=== PATIENT | male | born 1945 | race Caucasian/White ===

== ENCOUNTER → 2016-12-16 | Outpatient (CLI) | payer MEDICARE, OTHER ==
[~2016-12-16] MED LIST: ALDACTONE25 MG PO; AMARYL4 MG PO; APRESOLINE50 MG PO; ASPIRIN325 MG PO; BYSTOLIC10 MG PO; CARDURA2 MG PO; CPAP; GLUCOPHAGE1000 MG PO; HUMALOG100 UNIT/3 SUB-Q; K-TAB ER20 MEQ PO; LANTUS SOL100 UNIT/1 SUB-Q; LASIX80 MG PO; LEVEMIR100 UNIT/1 SUB-Q; NEURONTIN300 MG PO; NORCO 5-325 TA1 EACH PO; OMEPRAZOLE40 MG PO; OXYGEN M-15 INH; PLAVIX75 MG PO; PROAIR HFA8.5 GM INH; REGLAN10 MG PO; TYLENOL325 MG PO; ZAROXOLYN2.5 MG PO
== END | disposition disaster alternative care site (69) ==
LOC: GPOC 12-15 16:00 → GRAD 06:17 → GPOC 09:00 → GRAD 12-19 13:00
DX: I70.203 Unspecified atherosclerosis of native arteries of extremities, bilateral legs (principal); I70.202 Unspecified atherosclerosis of native arteries of extremities, left leg; I70.291 Other atherosclerosis of native arteries of extremities, right leg; I70.0 Atherosclerosis of aorta
CPT/HCPCS: Q9967

== ENCOUNTER 2016-12-27 08:37 | Inpatient (IN) | payer MEDICARE, OTHER ==
[~2016-12-27] VITALS: Ht 170.2 cm; Wt 94.4 kg
--- NOTE | ~2016-12-27 | HP ---
PATIENT'S NAME: GOODNEWS BAY MARTIN [facility] AGE: 71 Y [address] ROOM: [id number] [place], [place] [address] LOCATION: GPCU ADMIT DATE: 12/27/2016 History & Physical DISCHARGE DATE: FAMILY PHYSICIAN: Ramone Valenzuela MD ATTENDING PHYSICIAN: John Tapia DATE OF SERVICE: CHIEF COMPLAINT: Acute kidney injury in the setting of chronic kidney disease, stage 3, and hyperglycemia. HISTORY OF PRESENTING ILLNESS: This 71-year-old white male with a previous history of coronary artery disease, hypertension, and chronic kidney disease was brought to [facility] today for planned angiography under the direction of Dr. Davis. Briefly, he had been evaluated for rest claudication. He underwent JAZMINE testing, which was abnormal, and subsequently had CT angiography on 12/16/2016. 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 Dr. Davis recommended to undergo therapeutic angiography, which was scheduled for today. On his arrival here, his creatinine was found to be elevated at 2.1, and his blood glucose was 460. The procedure was canceled, and it was requested that I admit him to the floor for definitive evaluation and management. Presently, he reports feeling "good." He denies headaches, dizziness, or lightheadedness. He has not had any significant fevers. He does admit to feeling a little short of breath, particularly with exertion, and blames this on his congestive heart failure. He did have an admission for that within the past few months apparently. He denies chest pains. Denies palpitations or racing heartbeat. He has not had any abdominal pain. His appetite has been good, and he ate last at 11:30 p.m. last night. He took his Lantus in the evening as he usually does. He did not use any insulin this morning, and he admits that he does not check his blood sugars regularly. He follows with Dr. Valenzuela in [place] who manages his medical problems. He has been stooling and voiding normally. Denies numbness or tingling in his extremities, but does have some tenderness in his toes. He has some small ulcerations which he blames on trimming his toenails too short. PAST MEDICAL HISTORY: ALLERGIES: [facility] 71 [facility] [address] ROOM: [address] [place], [place] [address] [facility] AD[facility] DATE: 12/27/2016 History & Physical DISCHARGE DATE: FAMILY PHYSICIAN: Ramone Valenzuela MD ATTENDING PHYSICIAN: John Tapia PENICILLIN AND CEPHALEXIN. ILLNESSES: 1. Chronic systolic congestive heart failure. 2. Essential hypertension. 3. Chronic kidney disease, stage 3. 4. Peripheral arterial disease. 5. Diabetes mellitus, type 2. 6. Obstructive sleep apnea. 7. 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 8. Diabetic gastroparesis. 9. Diabetic peripheral neuropathy. 10. Nocturnal hypoxia. CURRENT MEDICATIONS: 1. Aspirin 325 mg p.o. daily. 2. Bystolic 10 mg p.o. daily. 3. Doxazosin 2 mg p.o. b.i.d. 4. Lasix 80 mg p.o. daily. 5. Gabapentin 300 mg 4 capsules p.o. t.i.d. 6. Lantus 75 units subcu q.h.s. 7. Metformin 1000 mg p.o. b.i.d. 8. Metolazone 5 mg p.o. every Monday, Monday, and Monday. 9. Omeprazole 40 mg p.o. daily. 10. Plavix 75 mg p.o. daily. 11. Potassium 20 mEq p.o. daily. 12. ProAir HFA 2 puffs p.o. q.i.d. p.r.n. 13. Reglan 10 mg p.o. t.i.d. p.r.n. 14. Tylenol 325 mg 3 tablets p.o. q.6 hours p.r.n. FAMILY HISTORY: Significant for Alzheimer disease in his father. Mother had diabetes and coronary artery disease. SOCIAL HISTORY: He is and lives in [place]. He is self-employed. He has a 40-pack- year history of smoking, but has been quit for 29 years. No significant history of alcohol use. REVIEW OF SYSTEMS: As per HPI. All other organ systems reviewed and are negative. PHYSICAL EXAMINATION: VITAL SIGNS: Temperature 97.1, pulse 73, respirations 16, blood pressure 144/66, and O2 saturation 93% on room air. PATIENT'S NAME: MARTIN ASTUDILLO [facility] AGE: 71 Y [address] ROOM: [id number] [place], [place] [address] LOCATION: GPCU ADMIT DATE: 12/27/2016 History & Physical DISCHARGE DATE: FAMILY PHYSICIAN: Ramone Valenzuela MD ATTENDING PHYSICIAN: John Tapia GENERAL: He is a little anxious, but cooperative; lying in bed; in no acute distress. SKIN: Supple, pink, warm, and dry. No obvious rashes. HEENT: Otherwise, normocephalic. Sclerae are nonicteric. Pupils equal, round, and reactive to light and accommodation. Extraocular movements appear intact. Nasal turbinates normal in appearance. Oropharynx clear. Mucous membranes are pink and moist. Dentition appears intact. NECK: Supple. Plethoric. No masses or cervical adenopathy. No thyromegaly. No JVD. CHEST WALL: Symmetrical. HEART: Regular with occasional extrasystoles. There is a grade 1 to 2 out of 6 systolic ejection murmur. LUNGS: Diminished at the bases, with some basilar crackles bilaterally which seem to clear with deep inspiration. ABDOMEN: Firm, protuberant, and obese. No masses or hepatosplenomegaly. GENITOURINARY: Not done. RECTAL: Not done. EXTREMITIES: Display trace pitting edema. No cyanosis. NEUROLOGICAL: Sensation is subjectively diminished over the lower extremities. Strength is 5/5 bilaterally in the upper and lower extremities. DTRs are 0 to 1+ and symmetrical. Gait is not observed. LABORATORY AND X-RAY DATA: Chemistry this morning revealed BUN and creatinine of 59 and 2.1, sodium and potassium of 135 and 4.6, chloride and CO2 were 96 and 31, and calcium 9.1. AST and ALT were 17 and 27 respectively. Bilirubin 0.3. Glucose was elevated at 460. An Accu-Chek was abnormal at 374 at 11:54 a.m. ASSESSMENT AND PLAN: 1. Acute kidney injury in the setting of chronic kidney disease, stage 3. His risk factors include longstanding and poorly controlled diabetes mellitus as well as hypertension. Additionally, he had a significant contrast load with CT angiography on 12/16/2016. He currently appears volume compensated and apparently making adequate amounts of urine. In view of his history of systolic congestive heart failure, we will be careful not to overload him, but plan to continue with careful IV fluid hydration therapy today. We will continue his home diuretic regimen, however. We will get renal ultrasound and follow up on that when the results are known, and depending on his clinical progress, consider getting formal nephrology consultation. He has seen Dr. Gomes in the past, but he does not recall that any followup or interventions were recommended. 2. Diabetes mellitus, type 2, uncontrolled, with hyperglycemia. Suspect a combination of medication and dietary noncompliance as contributing factors. We will manage with Accu-Cheks and sliding scale insulin in PATIENT'S NAME: MARTIN ASTUDILLO [facility] AGE: 71 Y [address] ROOM: [place] [address] LOCATION: GPCU ADMIT DATE: 12/27/2016 History & Physical DISCHARGE DATE: FAMILY PHYSICIAN: Ramone Valenzuela MD ATTENDING PHYSICIAN: John Tapia addition to his long-acting insulin. We will have to hold his metformin and glipizide in light of the acute kidney injury as above. We will follow the trend and make adjustments as necessary. 3. Chronic systolic congestive heart failure. He is mildly dyspneic as described above. Currently, he appears to be compensated, but there is some concern that he would easily become fluid overloaded. We will get a portable chest x-ray and proBNP and follow up on those when the results are known. We will also try to obtain some additional old records to ascertain his cardiac history. 4. Essential hypertension, uncontrolled. Plan to continue the home medication regimen and watch his fluid volume balance closely. We will make adjustments if necessary. 5. Peripheral arterial disease. Plan to continue with aspirin and Plavix therapy. Consider statin therapy at some point. 6. Obstructive sleep apnea. We will continue to use CPAP at bedtime. 7. Diabetic peripheral neuropathy. Plan to continue with gabapentin for now. 8. Diabetic gastroparesis. Continue the Reglan on a p.r.n. basis. 9. Deep venous thrombosis prophylaxis. We will utilize subcu heparin while he is inpatient. MD ISRAEL CASTANEDA/diana /[id number] D: [id number] T: [id number] HISTORY & PHYSICAL
--- NOTE | ~2016-12-27 | DS ---
PATIENT'S NAME: MARTIN ASTUDILLO [facility] AGE: 71 Y [address] ROOM: [address] [place], [place] [address] LOCATION: GPCU ADMIT DATE: 12/28/2016 Discharge Summary DISCHARGE DATE: 12/31/2016 FAMILY PHYSICIAN: Ramone Valenzuela MD ATTENDING PHYSICIAN: John Tapia FINAL DIAGNOSES: 1. Peripheral vascular disease with critical limb ischemia. 2. Accelerated hypertension. 3. Poorly controlled diabetes mellitus. 4. Acute kidney injury on stage 3 chronic kidney disease. 5. Diabetic peripheral neuropathy. 6. Chronic systolic congestive heart failure. 7. Obstructive sleep apnea with CPAP utilization. 8. Chronic hypoxic hypercapnic respiratory failure. PROCEDURE: Had an arteriogram with bilateral lower extremity runoff with a superficial femoral artery balloon angioplasty, right iliac angioplasty with stent. REASON FOR ADMISSION: The patient had presented for an outpatient procedure, but the procedure had to be postponed due to acute renal failure, poorly controlled diabetes, and accelerated hypertension. LABORATORY DATA: On admission, sodium 135, on discharge 140; potassium on admission 4.6, on discharge 3.8; BUN on admission 59, on discharge 45; creatinine on admission 2.1; on discharge 1.7. ProBNP on admission was 487. TSH 1.22. Liver enzymes were normal. On admission, white blood cell count 4.8, hemoglobin 13, hematocrit 42.7, MCV 79.8, and platelet count 141. At discharge, hemoglobin 12.8 and platelet count 145. Chest x-ray on admission did not show any acute changes. HOSPITAL COURSE: The patient was admitted after presenting for an outpatient procedure for his limb ischemia on the right leg. In the preop, he was noted to be hyperglycemic and his creatinine was noted to be 2.1. At that time, the decision was made to did admit the patient. The hospital service was consulted to see. At that time, he was started on sliding scale insulin. His blood sugars were checked closely. Renal ultrasound was done to evaluate the cause for his acute renal failure. We did require the initiation of IV medications to help control his blood pressure. Dr. Davis did see the patient. It was felt that because of the blood pressure being so resistant in the new onset kidney failure, that he needed to be placed as an inpatient. He was started on oral hydralazine, and in terms of his renal function, he was given some IV fluids. His renal toxic medications were held. Dr. Gomes was asked to see the patient. He was started on insulin at 2 units per 15 g of PATIENT'S NAME: MARTIN ASTUDILLO [facility] AGE: 71 Y [address] ROOM: [address] [place], [place] [address] LOCATION: GPCU ADMIT DATE: 12/28/2016 Discharge Summary DISCHARGE DATE: 12/31/2016 FAMILY PHYSICIAN: Ramone Valenzuela MD ATTENDING PHYSICIAN: John Tapia consumed, and we will increase his Levemir to 78. We continued to work on adjusting his medications as his blood sugars remained high and he remained hypertensive. Dr. Gomes did feel that this was prerenal as the etiology for his acute kidney insufficiency. His kidney function did improve and did get bound to his baseline. We were able to obtain the laboratory studies from Dr. Valenzuela's office, what showed his baseline. We did adjust his hydralazine. He was able to undergo the procedure with Dr. Davis on December 30, 2016, please see Dr. Davis's op note for full details. The patient was felt to be stable for discharge and discharged to home on December 31, 2016. He will follow up with Dr. Valenzuela in 3-[address] Gomes, in 2-3 weeks. He is to call Ryan to schedule the next procedure on the left leg. MEDICATIONS: 1. Potassium 20 mEq daily. 2. Acetaminophen 975 mg every 6 hours as needed. 3. Aspirin 325 mg daily. 4. Plavix 75 mg daily. 5. Cardura 2 mg twice daily. 6. Lasix 80 mg daily. 7. Gabapentin 300 mg twice daily. 8. Humalog insulin 12 units subcu 3 times daily with meals. 9. Metformin which he can start on January 01, 2017, 1000 mg twice daily. 10. Metoclopramide 10 mg 3 times daily. 11. Bystolic 10 mg daily. 12. Omeprazole 40 mg daily, CPAP machine. 13. Albuterol inhaled 2 puffs every 4 hours as needed. 14. Hydralazine 100 mg 3 times daily. 15. Levemir 80 mg subcu at bedtime. 16. Spironolactone 25 mg twice daily. 17. [place]wood 1-2 every 6 hours as needed. MARY RICO MD LAW/modl /[id number] CC: MD Ramone Torres MD [facility]: [facility] AGE: 71 Y [address] ROOM: [place] [address] [facility] AD[facility] DATE: 12/28/2016 Discharge Summary DISCHARGE DATE: 12/31/2016 FAMILY PHYSICIAN: Ramone Valenzuela MD ATTENDING PHYSICIAN: John Tapia MD d: 01/02/17 0107 t: 01/03/17 1451, DISCHARGE SUMMARY
--- NOTE | ~2016-12-27 | OR ---
PATIENT'S NAME: MARTIN ASTUDILLO [facility] AGE: 71 Y [address] ROOM: [address] [place] [address] LOCATION: GPCU ADMIT DATE: 12/28/2016 OR/Procedure Report DISCHARGE DATE: FAMILY PHYSICIAN: Ramone Valenzuela MD ATTENDING PHYSICIAN: John Tapia SURGEON: Merrick Davis MD BLAST FURNACE CHECKER: DATE OF PROCEDURE: 12/30/2016 PREOPERATIVE DIAGNOSIS: Critical ischemia on the right lower extremity. POSTOPERATIVE DIAGNOSIS: Critical ischemia on the right lower extremity. PROCEDURE: Aortogram, bilateral lower extremity runoffs, SFA balloon angioplasty, and a right external iliac balloon angioplasty and stenting with an 8 x 40 stent. DESCRIPTION OF PROCEDURE: The patient was brought to the chemistry laboratory technician, placed supine on the chemistry laboratory technician table, prepped and draped in a sterile manner. Preoperative time-out was performed. The patient received preoperative antibiotics. We gained access via the left groin using ultrasound guidance using a micropuncture wire followed by micropuncture sheath. We then exchanged for a 5-Bahraini sheath. We went up in the aorta and performed an aortogram which showed a patent distal aorta, patent common external and internal iliacs with a high-grade stenosis of the right external iliac. We went up over the bifurcation. We performed a series of angiograms of the right lower extremity which showed a completely occluded right SFA with recanalization of the above knee pop. We were able to pass a 035 Magic Torque wire across these SFA lesion down into the popliteal. We then exchanged using Seldinger technique for a 6-Bahraini Destination sheath. We then gave 5000 units of heparin. We balloon angioplastied the entire SFA, opened first by using a single 5 x 120 balloon, and then we angioplastied it subsequently with three 6 x 120 drug-coated balloons. We then brought our sheath back and balloon angioplastied the external iliac with a 7 x 80 balloon with good relief of the stenosis, but there was still a very high-grade heavily calcified portions, so we treated that with an 8 x 40 balloon expandable stent with good relief of the stenosis. We brought our sheath back up and over and performed an angiogram of the left lower extremity which basically showed multiple high-grade stenosis of the left SFA. The patient will need this repaired at a later date. Sheath was removed. Pressure was held. Protamine was used to reverse the heparin. The patient tolerated the procedure well and was transferred to the recovery room and back to the floor. PATIENT'S NAME: MARTIN ASTUDILLO [facility] AGE: 71 Y [address] ROOM: [id number] [place] [id number] [facility] AD[facility] DATE: 12/28/2016 OR/Procedure Report DISCHARGE DATE: FAMILY PHYSICIAN: Ramone Valenzuela MD ATTENDING PHYSICIAN: John Tapia MD JANET BLAKE/modl /[id number] d: 12/30/16 2254 t: 01/02/17 1511, OPERATIVE SUMMARY
--- NOTE | ~2016-12-27 | ENPV ---
Vascular Lower Arterial Plethysmography Procedure Demographics Patient Name MARTIN ASTUDILLO Date of Study 12/31/2016 Patient Number [id number] Gender Male Date of 1945 Age 71 Visit Number [id number] Height 66.93 Accession Number [id number] Weight 209 Referring Bianca Brown MD Interpreting Ryan Sin MD Physician Willie Arana MD Physician Coleen Jamison APRN Physician Ordering Physician Coleen Jamison Risk Control Consultant MISAEL Cash Manager Mara Caldera RVT Conclusions Summary Previous JAZMINE 11/29/2016 Right JAZMINE .24 Current Exam: Ankle brachial index on the right is .63 moderate arterial disease at rest. Procedure Type of Study: Extremities Arteries:Lower Arterial Plethysmography, Ankle/Brachial Indicies, Ankle/Brachial Indicies Unilateral. Indications for Study:Claudication. Appropriate Use Criteria:9 Allergies - Penicillin. - Other:(Cephalexin). Patient Status:Routine. Technical Quality:Adequate visualization. Velocities are measured in cm/s ; Diameters are measured in cm Pressures + +----+ +---------+--------+ + + ! ! !Right ! !Left ! ! ! + +----+ +---------+--------+ + + !Location ! !Pressure !Ratio ! !Pressure !Ratio ! + +----+ +---------+--------+ + + !Ankle PT ! !95 !0.6 ! ! ! ! + +----+ +---------+--------+ + + !DP ! !100 !0.63 ! ! ! ! + +----+ +---------+--------+ + + - Brachial Pressure:Right: 159.Left:133. - JAZMINE:Right: 0.63. Signature dtt: MANDIE LICONA dtd: 12/31/16 1157 Physician Self Edit
--- NOTE | ~2016-12-27 | CON ---
PATIENT'S NAME: COLON MARTIN Kevin [facility] AGE: 71 Y [address] ROOM: [place] [address] LOCATION: GPCU ADMIT DATE: 12/28/2016 Consultation DISCHARGE DATE: FAMILY PHYSICIAN: Ramone Valenzuela MD ATTENDING PHYSICIAN: John Tapia DATE OF CONSULTATION: 12/28/2016 REFERRING PHYSICIAN: Jodee Ang MD REASON FOR CONSULTATION: Elevated BUN and creatinine. HISTORY OF PRESENT ILLNESS: The patient is a 71-year-old white male with a history of and uncontrolled hypertension. I saw him for a Nephrology consultation because of his uncontrolled hypertension in the past. His outpatient medication did include lisinopril. Apparently, he was in heart failure and Lasix was initiated in [place], [place]. He reports that he has been taking ibuprofen on a regular basis. The patient was diagnosed with peripheral vascular disease. He came in for an arteriogram procedure and he was noted to have a creatinine of 2.1. Today, it is down to 1.7. Dr. Ang was concerned and asked me to see this gentleman for a Nephrology consultation. Renal ultrasound showed right kidney of 13.3 cm, left kidney of 12.8 cm. There is no hydronephrosis. REVIEW OF SYSTEMS: GENERAL: He denies any fever, chills, or rigors. HEENT: Denies any sore throat or sinus congestion. CARDIOVASCULAR: Denies any chest pain, dyspnea on exertion. RESPIRATORY: Denies any cough or sputum production. He did have history of leg swelling. GI: Denies any abdominal pain, nausea, or vomiting. : Denies any dysuria or frequency. MUSCULOSKELETAL: He had pain in the right ankle that is why he was taking ibuprofen. SKIN: Denied any rash or pruritus. Denies any allergies or hay fever. Denies any lymph enlargement or easy bruising. Denies any heat or cold intolerance. ALLERGIES: PENICILLIN AND CEPHALOSPORIN. MEDICATIONS: Outpatient medications include: 1. Aspirin 325 mg a day. PATIENT'S NAME: COLON [facility] AGE: 71 Y [address] ROOM: [place] [address] LOCATION: GPCU ADMIT DATE: 12/28/2016 Consultation DISCHARGE DATE: FAMILY PHYSICIAN: Ramone Valenzuela MD ATTENDING PHYSICIAN: John Tapia 2. Bystolic 10 mg a day. 3. Doxazosin 2 mg twice a day. 4. Lasix 80 mg every day. 5. Gabapentin 300 mg 4 capsules 3 times a day. 6. Lantus 75 units subcutaneously every day. 7. Metformin 1000 mg twice a day. 8. Metolazone 5 mg Monday, Monday, Monday. 9. Omeprazole 40 mg a day. 10. Plavix 75 mg a day. 11. Potassium 20 mEq a day. 12. ProAir HFA 2 puffs 4 times a day p.r.n. 13. Reglan 10 mg 3 times a day. 14. Tylenol p.r.n. PAST MEDICAL HISTORY: Diabetes mellitus, hypertension, chronic congestive heart failure, obesity, peripheral vascular disease, obstructive sleep apnea, chronic hypoxemia, hypercapnic respiratory failure, gastroparesis from diabetes, and diabetic peripheral neuropathy. SOCIAL HISTORY: The patient lives at home in [place]. He is self-employed. He has 40-pack- year history of tobaccoism. He quit smoking 29 years ago. No history of alcohol. He lives with his family. FAMILY HISTORY: No family history of kidney disease or dialysis. PHYSICAL EXAMINATION: GENERAL APPEARANCE: This is a 71-year-old, moderately obese white male, lying in the hospital bed, not in acute distress. VITAL SIGNS: Temperature 97.6, pulse 77, systolic blood pressure 192 and diastolic 84. HEENT: Head: Normocephalic. EENT: Pupils are round and equal. Normal eyelids and conjunctivae. Oral cavity clear. Loss of tooth. Trachea is central. No thyromegaly, no bruit. Unable to evaluate jugular venous pulsation. HEART: Heart sounds are audible. There is no gallop or murmur. There is no pericardial rub. Pulses are regular in rhythm. LUNGS: Bilaterally clear to auscultate with diminished breath sounds as a whole due to obesity. ABDOMEN: Obese, soft, nontender, could not palpate any liver, spleen, or distended abdomen. EXTREMITIES: No clubbing or cyanosis. SKIN: No sign of vasculitis. PATIENT'S NAME: MARTIN ASTUDILLO [facility] AGE: 71 Y [address] ROOM: [id number] [place], [place] [address] LOCATION: GPCU ADMIT DATE: 12/28/2016 Consultation DISCHARGE DATE: FAMILY PHYSICIAN: Ramone Valenzuela MD ATTENDING PHYSICIAN: John Tapia LYMPHATICS: I did not examine the lymphatics. HIGHER PSYCHIATRIC FUNCTION: Normal speech and memory. LABORATORY DATA: Sodium 139, potassium 4.0, chloride 98, bicarb 32, BUN of 49, creatinine of 1.7. Calcium 9.0, albumin 3.6, phosphorus 4.3. ASSESSMENT: 1. Elevated creatinine. The patient probably has a background of diabetic nephropathy, given he had poorly controlled diabetes with hemoglobin A1c of 9.0. However, I do not know whether he has proteinuria. Acute on chronic kidney disease is most likely related to prerenal etiology. He was taking ibuprofen, he was on lisinopril, and he is also on diuretics. The patient also had accelerated hypertension where his systolic blood pressures went up to 190s and 200s. The patient could have from that. 2. Chronic congestive heart failure. 3. Diabetes mellitus. 4. Diabetic neuropathy. 5. Obesity. 6. Essential hypertension. PLAN: I explained to the patient that his kidney function is less than 50% of what it should have been for his age and sex. I advised him not to use any nonsteroidals or LANGFORD-2 inhibitors ever in his life. His renal ultrasound did not show any hydronephrosis. I noticed that his systolic blood pressure is still 192 and I will add spironolactone. We will check a urinalysis, follow renal function very closely while he is in the hospital. We may need to check for secondary causes of hypertension in this gentleman. His kidneys look symmetric. I would like to thank Dr. Ang for allowing me to participate in this patient's care. M MD JORGE ALVARADOI/isidorol /[id number] CC: Ramone Valenzuela MD d: 12/29/16 0043 t: 12/30/16 1240, CONSULTATION REPORT
[~2016-12-27 08:37] MED LIST changes: -ALDACTONE25 MG PO; -APRESOLINE50 MG PO; -LEVEMIR100 UNIT/1 SUB-Q; -NORCO 5-325 TA1 EACH PO
[2016-12-27 10:06] LABS: ANION GAP 12.6 (10.0-19.0); CALCIUM 9.1 mg/dL (8.5-10.5); CREATININE 2.1 mg/dL (0.6-1.3); POTASSIUM 4.6 mMol/L (3.7-5.1); TOTAL BILIRUBIN 0.3 mg/dL (0.0-1.5); TOTAL PROTEIN 7.5 g/dL (6.0-8.4)
--- NOTE | 2016-12-27 11:04 | NUR ---
PT HERE TO HAVE A PROCEDURE WITH DR. LICONA TODAY. PT'S LAB WORK CAME BACK AND HIS BLOOD SUGAR WAS CRITICAL AT 460, GFR WAS 31 AND CREATININE WAS ELEVATED AT 2.1. ZHAO RODRIGUEZ APRN WAS CONTACTED REGARDING THE LAB RESULTS DR. LICONA WAS DOING A PROCEDURE. MISAEL CHURCHILL GAVE AN ORDER TO GIVE NOVOLOG 12UNITS SUB-Q X1 DOSE NOW AND REPEAT BLOOD SUGAR IN 1 HOUR. MISAEL CHURCHILL THEN CAME AND SAW THE PT AND HIS HERE IN [facility]. MISAEL CHURCHILL ADVISED THE PT AND HIS THAT THEY WOULD LIKE TO ADMIT HIM WITH HIS BLOOD SUGAR BEING SO HIGH WELL HIS CREATININE IS ELEVATED. PT AGREED TO THIS. MISAEL CHURCHILL THEN CONTACTED THE HOSPITALIST AND THEY AGREED TO ADMIT THE PT. FUNERAL ASSISTANT WAS THEN CONTACTED BY MISAEL CHURCHILL AND THE PT WILL BE GOING TO PCU ROOM 6398. REPORT WILL BE CALLED TO NÉSTOR KESSLER ON PCU ONCE SHE IS AVAILABLE. PT HAS NO C/O PAIN. PT'S BP IS ELEVATED AT 180'S/80'S. PT GOT 12 UNITS OF NOVOLOG IN HIS ABD AT 1043.
[2016-12-27 16:06] LABS: BASOPHIL % 0.6 %; EOSINOPHIL # 0.1 K/uL (0.0-0.5); EOSINOPHIL % 2.1 %; HEMATOCRIT 42.7 % (37.0-53.0); IMMATURE GRANULOCYTE % 0.2 %; LYMPHOCYTE # 0.9 K/uL (0.8-4.0); LYMPHOCYTE % 19.6 %; MCH 24.3 pg (27.0-34.0); MCHC 30.4 gm/dL (32.0-36.5); MCV 79.8 fl (83.0-98.0); MONOCYTE # 0.4 K/uL (0.0-1.0); MONOCYTE % 9.1 %; NEUTROPHIL # (ANC) 3.3 K/uL (1.4-9.0); NEUTROPHIL % 68.4 %; NRBC % 0 /100WBC (0-0.00); PLATELET COUNT 141 K/uL (150-450); RBC 5.35 M/uL (3.50-5.50); RDW-CV 16.7 % (11.9-14.6); WBC 4.8 K/uL (4.0-11.0)
[2016-12-27 16:20] LABS: ANION GAP 11.2 (10.0-19.0); CALCIUM 8.8 mg/dL (8.5-10.5); CREATININE 2.1 mg/dL (0.6-1.3); POTASSIUM 4.2 mMol/L (3.7-5.1)
--- NOTE | 2016-12-27 16:25 | NUR ---
Significant event: A&Ox3. HR 70-80's. Initial BP 180/79, given home dose of cardura, BP at 1500 was 148/67. Lungs clear/diminished. NS at 30 ml/hr for 500 ml total. 2+ edema to bilater tibial area. Leg pain, tylenol and neurotin did not help, norco ordered and given. BG 374 at 1200 p.m. Accu-checks AC/HS. Renal U/S and Chest-xray done this shift. Follow Up: Continue current POC.
--- NOTE | 2016-12-28 03:31 | NUR ---
Significant event: A/O x3. Afebrile. Pain in legs and feet. Gave norco 2 tabs x1. VSS on RA/Cpap at night. SBP 170-180s. HRs 70-80s. LS clear/dim. BS 396, treated w/ 12 units of novolog. 2+tibial edema. NS @30ml for 500ml running in rt wrist. Dry skin, nidia appearance. Cooperative with cares. Follow up: Continue to monitor per plan of care.
[2016-12-28 03:35] LABS: ALBUMIN 3.6 gm/dL (3.5-5.0); CREATININE 1.7 mg/dL (0.6-1.3); MAGNESIUM 2.3 mg/dL (1.8-2.6); PHOSPHORUS 4.3 mg/dL (2.5-4.9)
--- NOTE | 2016-12-28 17:27 | NUR ---
DIABETES CONSULT: Patient reports having diabetes for several years. States his last A1C was 9% in November, which is improved from 11%. The patient uses Lantus 70 units at HS and takes Humalog 12 units with his supper meal. The patient understands how to read food labels and count carbohydrates. He was provided with a print out of current insulin doses. His is not present at the time of my visit. Will return and provide education tomorrow when his is also available.
--- NOTE | 2016-12-28 18:45 | NUR ---
Significant Event: SBPS ELEVATED THIS SHIFT 180S-200S; IV HYDRALAZINE X2, PO DOSING ALSO STARTED. IV LOPRESSOR 5 MG IVP AT SHIFT CHANGE AND SBP DOWN TO 170; DR. RICO NOTIFIED REGARDING SBPS-ORDERS RECIEVED. BS REMAIN ELEVATED 179-300S; INSULIN ADJUSTED AND DIABETIC ED CONSULTED AND UP TO SEE THIS AFTERNOON. OBDULIO X1 THIS AM FOR CHRONIC NEUROPATHY PAIN. Follow up: CONTINUE PLAN OF CARE; PLAN FOR ANGIOGRAM WITH DR. LICONA ON MONDAY.
[2016-12-28 19:11] LABS: BILIRUBIN URINE NEGATIVE (NEGATIVE); BLOOD URINE NEGATIVE /UL (NEGATIVE); COLOR URINE YELLOW (YELLOW); GLUCOSE URINE 1000 mg/dL (NEGATIVE); KETONE URINE NEGATIVE (NEGATIVE); LEUKOCYTES URINE NEGATIVE /UL (NEGATIVE); NITRITE URINE NEGATIVE (NEGATIVE); PROTEIN URINE 30 mg/dL (NEGATIVE); TURBIDITY URINE CLEAR (CLEAR); UROBILINOGEN URINE NORMAL (NORMAL)
[2016-12-28 19:32] LABS: RBC URINE NEGATIVE #/HPF (NEGATIVE); WBC URINE RARE #/HPF (NEGATIVE)
[2016-12-28 19:33] LABS: BACTERIA URINE NEGATIVE (NEGATIVE); MUCUS URINE NEGATIVE (NEGATIVE)
--- NOTE | 2016-12-29 03:40 | NUR ---
Patient A/Ox3 but can be forgetful at times. VSS ex BP >170 most of night. IV lopressor x1 and started hydralazine 50mg PO TID. 2100 BS >400. 18 units novolog and 78units of levemir given. [place] given x1 for bilateral leg pain. at bedside. Angio gram possible monday.
[2016-12-29 04:52] LABS: ALBUMIN 3.7 gm/dL (3.5-5.0); ANION GAP 12.6 (10.0-19.0); CALCIUM 9.3 mg/dL (8.5-10.5); CREATININE 1.6 mg/dL (0.6-1.3); PHOSPHORUS 3.9 mg/dL (2.5-4.9); POTASSIUM 3.6 mMol/L (3.7-5.1)
--- NOTE | 2016-12-29 09:00 | NUR ---
Diabetes Consult: Patient's is at bedside this morning. Blood sugars this a.m. improved to 180. Reviewed with the patient and his how to read a food label, count carbohydrates and portion control. Patient was encouraged to limit carb consumption to 45-60 grams per meal. His creat. is improved from 1.7 to 1.6. Anticipate he will be discharged on carb count with insulin to carb ratio, correction scale and a long acting insulin. Novolog action, timing of injections with meals and doses were reviewed. Patient and are able to verbalize the correct doses of insulin. Diabetes survival checklist completed. Will have CDE follow up in the a.m.
--- NOTE | 2016-12-29 16:33 | NUR ---
Significant event: A&Ox3. HR 70's. Afebrile. RA. SBP 150-178. IV hydralazine given x 1 this shift brought SBP down from 178 to 164. Lungs clear/diminished. 2+ tibial edema. Orders for Kpad-heat to be applied to L) calf and superficial thrombophlebitis, patient has some redness and firm area to R) calf as well. BG 180, 366. Carb count increased. Patient is to be NPO at midnight for procedure tomorrow, touched base with Jose Lozoya APRN. Procedure to be at 1:00 p.m. tomorrow, family aware. Follow Up: No orders for procedure yet, permits will need to be signed.
--- NOTE | 2016-12-30 04:43 | NUR ---
Patient A/Ox3. VSS ex SBP 180-200's. IV hydralazine given x2. UP ad gracia in room. Pain to bilateral legs, norco x2 relief noted. Lungs clear. Bowel sounds present. NPO for Surgery today at 1300. at bedside.
[2016-12-30 05:11] LABS: ALBUMIN 3.8 gm/dL (3.5-5.0); CALCIUM 9.5 mg/dL (8.5-10.5); CREATININE 1.8 mg/dL (0.6-1.3); PHOSPHORUS 3.9 mg/dL (2.5-4.9)
--- NOTE | 2016-12-30 18:36 | NUR ---
PATIENT WENT FOR ANGIOGRAM TODAY. HE RECEIVED A STENT TO THE ILIAC AND BALLOONED OTHER SPOTS IN RIGHT LEG. ACCESS WAS THROUGH THE LEFT GROIN. PATIENT IS ON BEDREST UNTIL 2100
--- NOTE | 2016-12-31 04:08 | NUR ---
Patient A/Ox3. SNOQUALMIE. VSS wears cpap with 2L HS. Up standby assist. LT groin CDI, soft. [place] x1 at HS for bilateral leg pain. Blood sugar at HS 407, Novolog 20units and levemir 80units. BS at 0300 200's. IV rt hand dressing changed, NS at 100ml/hr until 1400. Possible home today. Blood pressures better tonight 140-170's. at bedside. Home today. Will need to come back to have other leg stented.
[2016-12-31 04:53] LABS: BASOPHIL % 0.3 %; EOSINOPHIL # 0.1 K/uL (0.0-0.5); EOSINOPHIL % 1.7 %; HEMATOCRIT 41.5 % (37.0-53.0); HEMOGLOBIN 12.8 g/dL (11.0-16.0); IMMATURE GRANULOCYTE % 0.3 %; LYMPHOCYTE # 0.9 K/uL (0.8-4.0); LYMPHOCYTE % 14.6 %; MCH 24.8 pg (27.0-34.0); MCHC 30.8 gm/dL (32.0-36.5); MCV 80.3 fl (83.0-98.0); MONOCYTE # 0.7 K/uL (0.0-1.0); MONOCYTE % 11.2 %; MPV 10.1 fl (9.4-12.4); NEUTROPHIL # (ANC) 4.6 K/uL (1.4-9.0); NEUTROPHIL % 71.9 %; NRBC % 0 /100WBC (0-0.00); PLATELET COUNT 145 K/uL (150-450); RBC 5.17 M/uL (3.50-5.50); RDW-CV 16.8 % (11.9-14.6); WBC 6.4 K/uL (4.0-11.0)
[2016-12-31 05:06] LABS: ALBUMIN 3.5 gm/dL (3.5-5.0); ANION GAP 14.8 (10.0-19.0); CREATININE 1.7 mg/dL (0.6-1.3); PHOSPHORUS 4.2 mg/dL (2.5-4.9); POTASSIUM 3.8 mMol/L (3.7-5.1)
[2016-12-31] MEDS ORDERED: APRESOLINE50 MG PO (11:16)
[2016-12-31] MEDS ORDERED: LEVEMIR100 UNIT/1 SUB-Q (11:21)
[2016-12-31] MEDS ORDERED: ALDACTONE25 MG PO (11:25)
[2016-12-31] MEDS ORDERED: NORCO 5-325 TA1 EACH PO (11:27)
== END 2016-12-31 12:40 | disposition disaster alternative care site (69) | DRG 673 ==
LOC: GCAT 08:37 → GPCU 08:37 → GCAT 09:00 → GPCU 12:09 → GCAT 12:10 → GPCU 12:10
PROVIDERS: Internal Medicine Nephrology; Surgery Vascular Surgery; ADMIT Family Medicine
PROC: B41DYZZ Fluoroscopy of Aorta and Bilateral Lower Extremity Arteries using Other Contrast (ICD-10-PCS; principal; 2016-12-30)
PROC: 047H34Z Dilation of Right External Iliac Artery with Drug-eluting Intraluminal Device, Percutaneous Approach (ICD-10-PCS; 2016-12-30)
DX: N17.9 Acute kidney failure, unspecified (principal); J96.22 Acute and chronic respiratory failure with hypercapnia; J96.21 Acute and chronic respiratory failure with hypoxia; I50.22 Chronic systolic (congestive) heart failure; I70.211 Atherosclerosis of native arteries of extremities with intermittent claudication, right leg; E11.43 Type 2 diabetes mellitus with diabetic autonomic (poly)neuropathy; G47.33 Obstructive sleep apnea (adult) (pediatric); N18.3 Chronic kidney disease, stage 3 (moderate); Z99.81 Dependence on supplemental oxygen; E11.42 Type 2 diabetes mellitus with diabetic polyneuropathy; E11.65 Type 2 diabetes mellitus with hyperglycemia; K31.84 Gastroparesis; Z87.891 Personal history of nicotine dependence; E11.51 Type 2 diabetes mellitus with diabetic peripheral angiopathy without gangrene; Z79.4 Long term (current) use of insulin; Z53.09 Procedure and treatment not carried out because of other contraindication
CPT/HCPCS: C1725; C1769; C1876; C1887; G0378; J0360; J1644; J2250; J2720; J3010; J7030